=== PATIENT | female | born 1940 | race Caucasian/White ===

== ENCOUNTER 2019-03-16 10:37 | Inpatient (IN) ==
[2019-03-16 13:29] LABS: Basophils % 0.4 % (0.0-0.8); Hemoglobin 7.5 GM/DL (12.0-16.0); Immature Granulocytes % 5.7 %; Immature Granulocytes Absolute 0.29 #; Lymphocytes # 1.9 10*3/uL (1.4-4.0); Lymphocytes % 36.7 % (21.3-54.2); Mean Corpuscular Volume 112.6 FL (87-102); Mean Platelet Volume 10.5 FL (9.6-12.0); Monocytes % 9.8 % (1.7-12.7); NRBC # 0.02 10*3/uL; Neutrophils % 47.4 % (38.7-73.9); Platelet Count 107 T/CUMM (130-400); Red Blood Count 2.22 MC/CUMM (3.8-5.5); Red Cell Distribution Width 16.4 % (9.3-17.3); White Blood Count 5.1 T/CUMM (4-12)
[2019-03-16 13:48] LABS: Alanine Aminotransferase 12 U/L (13-56); Albumin 2.9 G/DL (3.4-5.0); Alkaline Phosphatase 97 U/L (45-117); Amylase 35 U/L (25-115); Apearance,Urine CLEAR (Clear); Aspartate Amino Transferase 30 U/L (0-37); Bilirubin,Urine Negative (Negative); Blood Urea Nitrogen 15 MG/DL (7-18); Blood, Urine Small mg/dL (Negative); Calcium 8.6 MG/DL (8.5-10.1); Glucose 93 MG/DL (74-106); Glucose,Urine (UA) Negative (Negative); Hyaline Casts,Urine 5 /LPF (0-3); Ketones,Urine 5 mg/dL (Negative); Mucus,Urine Occasional /LPF (Occasional); Nitrite,Urine Negative (Negative); Osmolality,Calculated 279.4 MOS/KG (273-304); Protein,Urine 30 MG/DL; RBC,Urine 2 /HPF (0-4); Squamous Epithelial Cell,Urine Occasional /HPF (0-10); Total Protein 6.7 G/DL (6.4-8.3); Urine Color Amber (Yellow); Urine Specific Gravity 1.027 (1.001-1.035); WBC,Urine 1 /HPF (0-6)
[2019-03-16 14:56] LABS: Atypical Lymphocytes Few; Band Neutrophils 1 % (0-10); Lymphocytes 37 % (20-55); Nucleated Red Blood Cells 1 (0-5); Platelet Estimate Adequate; Reactive Lymphocytes Few; Segmented Neutrophils 51 % (50-85); Total Cells Counted 100
[2019-03-16 14:58] LABS: Macrocytosis 1+; Platelet Satellitism Few
[2019-03-16 14:59] LABS: Sedimentation Rate-Westergren 122 MM/HR (0-30)
[2019-03-16] MEDS ORDERED: SODIUM CHLORIDE 0.9% 1,000 ML IV PRN (17:21)
[2019-03-16] MEDS ORDERED: diphenhydrAMINE CAP 25 MG CAPSULE PO ONE ×2 (17:30→23:20)
[2019-03-16] MEDS ORDERED: FUROSEMIDE 40 MG/4 ML VIAL IV SCH (17:30)
[2019-03-16] MEDS ORDERED: ALBUTEROL 2.5 MG/3 ML NEB RESP TX PRN (17:37)
[2019-03-16] MEDS ORDERED: LEVOFLOXACIN INJ 500 MG in PREMIX 1 EACH IV SCH (18:00)
[2019-03-16] MEDS ORDERED: SODIUM CHLORIDE 0.9% 2,300 ML IV ONE (18:15)
[2019-03-16] MEDS ORDERED: LEVOFLOXACIN INJ 100 ML IV ONE (19:02)
[2019-03-16] MEDS: LEVOFLOXACIN INJ 500 MG in PREMIX 1 EACH IV SCH (19:03)
[2019-03-16] MEDS: ALBUTEROL/IPRATROPIUM 3 ML NEB RESP TX SCH (19:18)
[2019-03-16] MEDS: VANCOMYCIN INJ 1,250 MG in SODIUM CHLORIDE 0.9% 250 ML IV SCH ×2 (20:29→23:31)
[2019-03-16] MEDS ORDERED: IPRATROPIUM/ALBUTEROL INHALER INH SCH (21:00)
[2019-03-17] MEDS: FLUTICASONE/SALMETEROL 100-50 DISKUS 14 DOSE INH SCH ×3 (00:09→21:11)
[2019-03-17] MEDS: SIMVASTATIN 20 MG TABLET PO SCH ×2 (00:09→21:11)
[2019-03-17] MEDS: ALBUTEROL/IPRATROPIUM 3 ML NEB RESP TX SCH ×4 (00:47→19:25)
[2019-03-17] MEDS ORDERED: PANTOPRAZOLE 40 MG VIAL IV ONE (01:10)
[2019-03-17] MEDS: LEVOTHYROXINE 50 MCG TABLET PO SCH (05:44)
[2019-03-17 08:53] LABS: Albumin 2.6 G/DL (3.4-5.0); Bilirubin,Total 1.1 MG/DL (0.2-1.0); Calcium 7.8 MG/DL (8.5-10.1); Osmolality,Calculated 281.3 MOS/KG (273-304)
[2019-03-17 08:54] LABS: % Iron Saturation 55.6 % (18-50); Ferritin 236.3 ng/ml (8-252)
[2019-03-17] MEDS: ESCITALOPRAM 10 MG TABLET PO SCH (09:27)
[2019-03-17] MEDS: FUROSEMIDE 40 MG TABLET PO SCH (09:27)
[2019-03-17 09:40] LABS: Folate 2.4 NG/ML (5.4-24.0)
[2019-03-17 09:42] LABS: Hematocrit 28.1 VOL% (35.7-47.0); Mean Corpuscular Volume 106.8 FL (87-102); Platelet Count 90 T/CUMM (130-400); Red Blood Count 2.63 MC/CUMM (3.8-5.5); Red Cell Distribution Width 18.5 % (9.3-17.3); White Blood Count 6.4 T/CUMM (4-12)
[2019-03-17 09:43] LABS: Basophils % 0.2 % (0.0-0.8); Immature Granulocytes % 4.5 %; Immature Granulocytes Absolute 0.29 #; Lymphocytes # 2.9 10*3/uL (1.4-4.0); Lymphocytes % 44.3 % (21.3-54.2); Mean Platelet Volume 10.3 FL (9.6-12.0); Monocytes % 7.5 % (1.7-12.7); Neutrophils % 43.5 % (38.7-73.9)
[2019-03-17 09:44] LABS: Anisocytosis 1+; Macrocytosis 1+
[2019-03-17 09:46] LABS: Platelet Estimate Decreased; Tear Drop Cells Slight
[2019-03-17 09:49] LABS: Band Neutrophils 1 % (0-10); Lymphocytes 52 % (20-55); Myelocytes 2 %; Segmented Neutrophils 41 % (50-85); Total Cells Counted 100
[2019-03-17] MEDS: FAMOTIDINE 20 MG/2 ML VIAL IV SCH ×2 (10:52→21:11)
[2019-03-17] MEDS: VANCOMYCIN INJ 1,250 MG in SODIUM CHLORIDE 0.9% 250 ML IV SCH ×2 (10:53→21:10)
[2019-03-17] MEDS: FOLIC ACID 1 MG TABLET PO SCH (11:55)
[2019-03-17 12:45] LABS: NRBC # 0.02 10*3/uL
[2019-03-17] MEDS ORDERED: FUROSEMIDE 40 MG/4 ML VIAL IV ONE (14:36)
[2019-03-17] MEDS ORDERED: traZODone 50 MG TABLET PO PRN (14:37)
[2019-03-17] MEDS: POLYETHYLENE GLYCOL POWDER 17 GM PACK PO SCH (16:23)
[2019-03-17] MEDS: LEVOFLOXACIN INJ 500 MG in PREMIX 1 EACH IV SCH (18:15)
[2019-03-17] MEDS ORDERED: ACETAMINOPHEN 500 MG TABLET PO ONE (20:45)
[2019-03-17] MEDS: diphenhydrAMINE CAP 50 MG CAPSULE PO PRN (21:10)
[2019-03-18] MEDS: ALBUTEROL/IPRATROPIUM 3 ML NEB RESP TX SCH ×4 (00:34→20:45)
[2019-03-18] MEDS: LEVOTHYROXINE 50 MCG TABLET PO SCH (05:36)
[2019-03-18 06:35] LABS: Albumin 2.5 G/DL (3.4-5.0); Bilirubin,Total 0.7 MG/DL (0.2-1.0); Calcium 8.2 MG/DL (8.5-10.1); Osmolality,Calculated 287.7 MOS/KG (273-304)
[2019-03-18] MEDS: FAMOTIDINE 20 MG/2 ML VIAL IV SCH ×2 (08:45→21:12)
[2019-03-18] MEDS: FOLIC ACID 1 MG TABLET PO SCH (08:45)
[2019-03-18] MEDS: FUROSEMIDE 40 MG TABLET PO SCH (08:45)
[2019-03-18] MEDS: ESCITALOPRAM 10 MG TABLET PO SCH (08:45)
[2019-03-18] MEDS: POLYETHYLENE GLYCOL POWDER 17 GM PACK PO SCH (08:46)
[2019-03-18] MEDS: CYANOCOBALAMIN 1000 MCG/1 ML VIAL IM SCH (08:46)
[2019-03-18] MEDS: FLUTICASONE/SALMETEROL 100-50 DISKUS 14 DOSE INH SCH ×2 (08:47→22:55)
[2019-03-18] MEDS: POTASSIUM CHLORIDE 20 MEQ TABLET PO PRN ×3 (12:28→17:55)
[2019-03-18] MEDS: FUROSEMIDE 40 MG/4 ML VIAL IV SCH (16:12)
[2019-03-18] MEDS: LEVOFLOXACIN INJ 500 MG in PREMIX 1 EACH IV SCH (17:54)
[2019-03-18] MEDS: SIMVASTATIN 20 MG TABLET PO SCH (21:11)
[2019-03-18] MEDS: diphenhydrAMINE CAP 50 MG CAPSULE PO PRN (21:12)
[2019-03-18] MEDS: ACETAMINOPHEN 325 MG TABLET PO SCH (22:54)
[2019-03-19] MEDS: ALBUTEROL/IPRATROPIUM 3 ML NEB RESP TX SCH ×2 (01:39→07:19)
[2019-03-19 05:20] LABS: Albumin 2.5 G/DL (3.4-5.0); Bilirubin,Total 0.8 MG/DL (0.2-1.0); Calcium 8.1 MG/DL (8.5-10.1); Osmolality,Calculated 280.3 MOS/KG (273-304)
[2019-03-19] MEDS: ESCITALOPRAM 10 MG TABLET PO SCH (08:51)
[2019-03-19] MEDS: FOLIC ACID 1 MG TABLET PO SCH (08:51)
[2019-03-19] MEDS: FUROSEMIDE 40 MG/4 ML VIAL IV SCH (08:51)
[2019-03-19] MEDS: LEVOTHYROXINE 50 MCG TABLET PO SCH (08:51)
[2019-03-19] MEDS: CYANOCOBALAMIN 1000 MCG/1 ML VIAL IM SCH (08:52)
[2019-03-19] MEDS: POLYETHYLENE GLYCOL POWDER 17 GM PACK PO SCH (08:52)
[2019-03-19] MEDS: FLUTICASONE/SALMETEROL 100-50 DISKUS 14 DOSE INH SCH (08:52)
[2019-03-19] MEDS: ACETAMINOPHEN 325 MG TABLET PO SCH (08:53)
[2019-03-19] MEDS: FAMOTIDINE 20 MG/2 ML VIAL IV SCH (08:53)
[2019-03-19] MEDS ORDERED: POTASSIUM CHLORIDE 20 MEQ TABLET PO SCH (09:00)
[2019-03-19 12:12] VITALS: BP 117/55
[2019-03-19 15:00] LABS: Ehrlichia Chaffeensis (HME)IgG <1:64 titer (<1:64)
== END 2019-03-19 13:05 | disposition home health service (06) | DRG 812 ==
LOC: N.ED 10:37 → N.EDINP 16:55 → SUATTDRO 16:55 → N.EDINP 22:43
PROVIDERS: ADMIT Family Medicine; ATTEND Family Medicine

== ENCOUNTER 2019-03-23 16:23 | Inpatient (IN) ==
[2019-03-23] MEDS ORDERED: SODIUM CHLORIDE 0.9% 500 ML IV STA (18:49)
[2019-03-23 19:04] LABS: Basophils % 0.4 % (0.0-0.8); Hemoglobin 9.4 GM/DL (12.0-16.0); Immature Granulocytes Absolute 0.23 #; Lymphocytes # 2.5 10*3/uL (1.4-4.0); Lymphocytes % 32.2 % (21.3-54.2); Mean Corpuscular HGB Conc 30.3 GM/DL (32-36); Mean Corpuscular Volume 108.8 FL (87-102); Mean Platelet Volume 10.9 FL (9.6-12.0); Monocytes % 11.7 % (1.7-12.7); NRBC # 0.02 10*3/uL; Neutrophils % 52.7 % (38.7-73.9); Platelet Count 90 T/CUMM (130-400); Red Blood Count 2.85 MC/CUMM (3.8-5.5); Red Cell Distribution Width 16.2 % (9.3-17.3); White Blood Count 7.7 T/CUMM (4-12)
[2019-03-23 19:17] LABS: Alanine Aminotransferase 18 U/L (13-56); Albumin 3.1 G/DL (3.4-5.0); Alkaline Phosphatase 109 U/L (45-117); Amylase 54 U/L (25-115); Aspartate Amino Transferase 34 U/L (0-37); Blood Urea Nitrogen 12 MG/DL (7-18); Calcium 8.7 MG/DL (8.5-10.1); Glucose 116 MG/DL (74-106); Total Protein 7.1 G/DL (6.4-8.3)
[2019-03-23 19:32] LABS: Lymphocytes 33 % (20-55); Segmented Neutrophils 56 % (50-85); Total Cells Counted 100
[2019-03-23 19:33] LABS: Platelet Estimate Decreased; Polychromasia Few
[2019-03-23 19:34] LABS: Macrocytosis 1+; Tear Drop Cells Slight
[2019-03-23 19:35] LABS: Anisocytosis 1+
[2019-03-23 20:10] LABS: Sedimentation Rate-Westergren 101 MM/HR (0-30)
[2019-03-23 20:11] LABS: Apearance,Urine CLEAR (Clear); Bacteria,Urine Occasional /HPF (Few); Bilirubin,Urine Negative (Negative); Blood, Urine Small mg/dL (Negative); Glucose,Urine (UA) Negative (Negative); Ketones,Urine Negative (Negative); Mucus,Urine Occasional /LPF (Occasional); Nitrite,Urine Negative (Negative); Protein,Urine Negative; RBC,Urine <1 /HPF (0-4); Squamous Epithelial Cell,Urine Occasional /HPF (0-10); Transitional Epi Cells,Urine Occasional /HPF (<1); Urine Color Yellow (Yellow); Urine Specific Gravity 1.013 (1.001-1.035); Urine Urobilinogen < 2.0 EU/DL (0.2-1.0)
[2019-03-23] MEDS ORDERED: cefTRIAXone 1,000 MG VIAL ONE (20:13)
[2019-03-23] MEDS ORDERED: DEXAMETHASONE 10 MG/1 ML VIAL ONE (20:13)
[2019-03-23] MEDS ORDERED: DOCUSATE SODIUM 100 MG CAPSULE PO PRN (20:21)
[2019-03-23] MEDS ORDERED: ACETAMINOPHEN 325 MG TABLET PO PRN (20:21)
[2019-03-23] MEDS ORDERED: ONDANSETRON 4 MG/2 ML VIAL IV PRN (20:21)
[2019-03-23] MEDS ORDERED: POTASSIUM CHLORIDE 20 MEQ TABLET PO ONE (20:30)
[2019-03-23] MEDS ORDERED: POLYETHYLENE GLYCOL POWDER 17 GM PACK PO PRN (20:31)
[2019-03-23] MEDS ORDERED: ENOXAPARIN 40 MG/0.4 ML SYRINGE SUBCUT SCH (21:00)
[2019-03-23] MEDS ORDERED: IPRATROPIUM/ALBUTEROL INHALER INH SCH (21:00)
[2019-03-23] MEDS: SIMVASTATIN 20 MG TABLET PO SCH (22:50)
[2019-03-23] MEDS: diphenhydrAMINE CAP 50 MG CAPSULE PO PRN (23:27)
[2019-03-23] MEDS: ACETAMINOPHEN 500 MG TABLET PO PRN (23:27)
[2019-03-24] MEDS: ALBUTEROL/IPRATROPIUM 3 ML NEB RESP TX SCH ×4 (00:10→20:26)
[2019-03-24] MEDS: LEVOTHYROXINE 50 MCG TABLET PO SCH (05:16)
[2019-03-24 06:27] LABS: Basophils % 0.3 % (0.0-0.8); Hematocrit 26.1 VOL% (35.7-47.0); Hemoglobin 8.1 GM/DL (12.0-16.0); Immature Granulocytes % 3.6 %; Immature Granulocytes Absolute 0.21 #; Lymphocytes # 2.1 10*3/uL (1.4-4.0); Lymphocytes % 36.2 % (21.3-54.2); Mean Corpuscular Volume 107.4 FL (87-102); Mean Platelet Volume 10.8 FL (9.6-12.0); Monocytes % 13.4 % (1.7-12.7); NRBC # 0.02 10*3/uL; Neutrophils % 46.5 % (38.7-73.9); Platelet Count 81 T/CUMM (130-400); Red Blood Count 2.43 MC/CUMM (3.8-5.5); Red Cell Distribution Width 16.2 % (9.3-17.3); White Blood Count 5.8 T/CUMM (4-12)
[2019-03-24 06:36] LABS: Calcium 8.2 MG/DL (8.5-10.1); Osmolality,Calculated 277.4 MOS/KG (273-304)
[2019-03-24 07:07] LABS: Hypochromasia 1+; Macrocytosis 1+; Tear Drop Cells Slight
[2019-03-24 07:08] LABS: Anisocytosis 1+; Platelet Estimate Decreased
[2019-03-24] MEDS: ASPIRIN EC 81 MG TABLET PO SCH (08:29)
[2019-03-24] MEDS: FUROSEMIDE 40 MG TABLET PO SCH (08:29)
[2019-03-24] MEDS: FOLIC ACID 1 MG TABLET PO SCH (08:29)
[2019-03-24] MEDS ORDERED: CYANOCOBALAMIN 500 MCG TABLET PO SCH (09:00)
[2019-03-24] MEDS: CYANOCOBALAMIN 1000 MCG/1 ML VIAL IM SCH (12:06)
[2019-03-24] MEDS: SIMVASTATIN 20 MG TABLET PO SCH (20:26)
[2019-03-24] MEDS: ZALEPLON 5 MG CAPSULE PO PRN (20:26)
[2019-03-24] MEDS: ACETAMINOPHEN 500 MG TABLET PO PRN (20:30)
[2019-03-24] MEDS: diphenhydrAMINE CAP 50 MG CAPSULE PO PRN (20:35)
[2019-03-25] MEDS: ALBUTEROL/IPRATROPIUM 3 ML NEB RESP TX SCH ×4 (00:32→19:10)
[2019-03-25] MEDS: LEVOTHYROXINE 50 MCG TABLET PO SCH (06:25)
[2019-03-25 10:01] LABS: Cyclic Citrull Peptide Interp Negative
[2019-03-25] MEDS: ASPIRIN EC 81 MG TABLET PO SCH (10:05)
[2019-03-25] MEDS: FUROSEMIDE 40 MG TABLET PO SCH (10:05)
[2019-03-25] MEDS: FOLIC ACID 1 MG TABLET PO SCH ×2 (10:05→21:09)
[2019-03-25] MEDS: CYANOCOBALAMIN 1000 MCG/1 ML VIAL IM SCH (10:07)
[2019-03-25 10:30] LABS: Rheumatoid Factor < 15 IU/ML (<15)
[2019-03-25] MEDS ORDERED: VANCOMYCIN INJ 1,250 MG in SODIUM CHLORIDE 0.9% 250 ML IV ONE (11:30)
[2019-03-25] MEDS ORDERED: methylPREDNISolone SOD SUC 40 MG/1 ML VIAL IV SCH (12:30)
[2019-03-25] MEDS: FLUTICASONE/SALMETEROL 100-50 DISKUS 14 DOSE INH SCH ×2 (12:45→21:09)
[2019-03-25 15:25] LABS: Ferritin 253.1 ng/ml (8-252); Total Protein 6.9 G/DL (6.4-8.3)
[2019-03-25 15:45] LABS: Immunoglobulin A 152 MG/DL (70-400); Immunoglobulin G 1070 MG/DL (700-1600); Immunoglobulin M 389 MG/DL (40-230)
[2019-03-25] MEDS: ZALEPLON 5 MG CAPSULE PO PRN (21:09)
[2019-03-25] MEDS: ACETAMINOPHEN 500 MG TABLET PO PRN (21:09)
[2019-03-26] MEDS: ALBUTEROL/IPRATROPIUM 3 ML NEB RESP TX SCH ×4 (01:37→20:13)
[2019-03-26 06:02] LABS: Basophils % 0.5 % (0.0-0.8); Hematocrit 24.7 VOL% (35.7-47.0); Hemoglobin 7.7 GM/DL (12.0-16.0); Immature Granulocytes % 3.6 %; Immature Granulocytes Absolute 0.15 #; Lymphocytes # 1.5 10*3/uL (1.4-4.0); Mean Corpuscular HGB Conc 31.2 GM/DL (32-36); Mean Corpuscular Volume 110.3 FL (87-102); Neutrophils % 44.9 % (38.7-73.9); Platelet Count 84 T/CUMM (130-400); Red Blood Count 2.24 MC/CUMM (3.8-5.5); Red Cell Distribution Width 16.7 % (9.3-17.3); White Blood Count 4.1 T/CUMM (4-12)
[2019-03-26 06:27] LABS: Hypochromasia 1+; Platelet Estimate Decreased
[2019-03-26 06:28] LABS: Calcium 8.4 MG/DL (8.5-10.1); Macrocytosis Slight; Osmolality,Calculated 278.4 MOS/KG (273-304)
[2019-03-26] MEDS: LEVOTHYROXINE 50 MCG TABLET PO SCH (06:40)
[2019-03-26 08:18] LABS: Total Protein (Chem) 6.9 G/DL (6.4-8.3)
[2019-03-26] MEDS ORDERED: SODIUM CHLORIDE 0.9% 1,000 ML IV PRN (08:33)
[2019-03-26] MEDS: ASPIRIN EC 81 MG TABLET PO SCH (08:53)
[2019-03-26] MEDS: methylPREDNISolone SOD SUC 40 MG/1 ML VIAL IV SCH (08:53)
[2019-03-26] MEDS: FOLIC ACID 1 MG TABLET PO SCH ×2 (08:53→21:34)
[2019-03-26] MEDS: CYANOCOBALAMIN 1000 MCG/1 ML VIAL IM SCH (08:53)
[2019-03-26] MEDS: FUROSEMIDE 40 MG TABLET PO SCH (08:53)
[2019-03-26] MEDS: FLUTICASONE/SALMETEROL 100-50 DISKUS 14 DOSE INH SCH ×2 (08:53→21:25)
[2019-03-26 09:31] LABS: Albumin (SPE) 4.1 G/DL (3.2-5.3); Albumin (SPE) Rel % 58.7 %; Alpha 1 (SPE) 0.4 G/DL (0.1-0.4); Alpha 1 (SPE) Rel % 5.5 %; Alpha 2 (SPE) 0.7 G/DL (0.4-1.0); Alpha 2 (SPE) Rel % 10.1 %; Beta (SPE) 0.6 G/DL (0.5-1.1); Beta (SPE) Rel % 8.5 %; Gamma (SPE) Rel % 17.2 %
[2019-03-26 10:17] LABS: Gamma (SPE) 1.2 G/DL (0.7-1.7)
[2019-03-26 10:19] LABS: Double Stranded DNA Antibodies < 25.0 IU/ML
[2019-03-26 10:21] LABS: Immunoglobulin A (Chem) 152 MG/DL (70-400); Immunoglobulin G (Chem) 1070 MG/DL (700-1600); Immunoglobulin M (Chem) 389 MG/DL (40-230)
[2019-03-26 10:23] LABS: Anti SS-A Antibodies < 16 EU/ML
[2019-03-26] MEDS: ACETAMINOPHEN 500 MG TABLET PO PRN (21:34)
[2019-03-26] MEDS: ZALEPLON 5 MG CAPSULE PO PRN (21:34)
[2019-03-27] MEDS: ALBUTEROL/IPRATROPIUM 3 ML NEB RESP TX SCH ×4 (00:42→19:59)
[2019-03-27 00:57] LABS: Hematocrit 29.4 VOL% (35.7-47.0); Hemoglobin 9.7 GM/DL (12.0-16.0)
[2019-03-27 05:31] LABS: Basophils % 0.3 % (0.0-0.8); Hematocrit 29.8 VOL% (35.7-47.0); Hemoglobin 9.7 GM/DL (12.0-16.0); Immature Granulocytes % 2.9 %; Lymphocytes # 1.5 10*3/uL (1.4-4.0); Lymphocytes % 21.8 % (21.3-54.2); Mean Corpuscular HGB Conc 32.6 GM/DL (32-36); Mean Corpuscular Volume 100.7 FL (87-102); Mean Platelet Volume 10.9 FL (9.6-12.0); Monocytes % 11.6 % (1.7-12.7); NRBC # 0.02 10*3/uL; Neutrophils % 63.4 % (38.7-73.9); Platelet Count 97 T/CUMM (130-400); Red Blood Count 2.96 MC/CUMM (3.8-5.5); Red Cell Distribution Width 19.4 % (9.3-17.3); White Blood Count 6.9 T/CUMM (4-12)
[2019-03-27 05:58] LABS: Atypical Lymphocytes Few; Band Neutrophils 1 % (0-10); Eosinophils 1 % (0-10); Hypochromasia 1+; Lymphocytes 24 % (20-55); Segmented Neutrophils 66 % (50-85); Total Cells Counted 100
[2019-03-27 05:59] LABS: Anisocytosis 1+; Macrocytosis 1+; Platelet Estimate Decreased; Tear Drop Cells Slight
[2019-03-27] MEDS: LEVOTHYROXINE 50 MCG TABLET PO SCH (07:49)
[2019-03-27] MEDS: ERGOCALCIFEROL 50,000 UNIT CAPSULE PO SCH (09:37)
[2019-03-27] MEDS: FOLIC ACID 1 MG TABLET PO SCH ×2 (09:37→21:58)
[2019-03-27] MEDS: FUROSEMIDE 40 MG TABLET PO SCH (09:37)
[2019-03-27] MEDS: ASPIRIN EC 81 MG TABLET PO SCH (09:38)
[2019-03-27] MEDS: COENZYME Q10 100 MG CAPSULE PO SCH (09:38)
[2019-03-27] MEDS: methylPREDNISolone SOD SUC 40 MG/1 ML VIAL IV SCH (09:51)
[2019-03-27] MEDS: CYANOCOBALAMIN 1000 MCG/1 ML VIAL IM SCH (10:52)
[2019-03-27] MEDS: FLUTICASONE/SALMETEROL 100-50 DISKUS 14 DOSE INH SCH ×2 (10:53→21:59)
[2019-03-27 14:41] LABS: Myeloperoxidase Antibody < 0.2 U
[2019-03-27] MEDS: ACETAMINOPHEN 500 MG TABLET PO PRN (21:58)
[2019-03-28] MEDS: ALBUTEROL/IPRATROPIUM 3 ML NEB RESP TX SCH ×4 (01:09→19:50)
[2019-03-28] MEDS: LEVOTHYROXINE 50 MCG TABLET PO SCH (05:34)
[2019-03-28] MEDS: methylPREDNISolone SOD SUC 40 MG/1 ML VIAL IV SCH (09:13)
[2019-03-28] MEDS: CYANOCOBALAMIN 1000 MCG/1 ML VIAL IM SCH (09:13)
[2019-03-28] MEDS: ASPIRIN EC 81 MG TABLET PO SCH (09:14)
[2019-03-28] MEDS: COENZYME Q10 100 MG CAPSULE PO SCH (09:14)
[2019-03-28] MEDS: FUROSEMIDE 40 MG TABLET PO SCH (09:14)
[2019-03-28] MEDS: FOLIC ACID 1 MG TABLET PO SCH ×2 (09:14→20:30)
[2019-03-28] MEDS: FLUTICASONE/SALMETEROL 100-50 DISKUS 14 DOSE INH SCH ×2 (09:14→20:30)
[2019-03-28] MEDS ORDERED: MAGNESIUM HYDROXIDE SUSP 30 ML UDCUP PO ONE (18:06)
[2019-03-28] MEDS: ZALEPLON 5 MG CAPSULE PO PRN (20:30)
[2019-03-29] MEDS: ALBUTEROL/IPRATROPIUM 3 ML NEB RESP TX SCH ×4 (00:50→20:10)
[2019-03-29] MEDS: LEVOTHYROXINE 50 MCG TABLET PO SCH (05:55)
[2019-03-29] MEDS: CYANOCOBALAMIN 1000 MCG/1 ML VIAL IM SCH (09:10)
[2019-03-29] MEDS: ASPIRIN EC 81 MG TABLET PO SCH (09:10)
[2019-03-29] MEDS: methylPREDNISolone SOD SUC 40 MG/1 ML VIAL IV SCH (09:10)
[2019-03-29] MEDS: FOLIC ACID 1 MG TABLET PO SCH ×2 (09:10→20:29)
[2019-03-29] MEDS: COENZYME Q10 100 MG CAPSULE PO SCH (09:10)
[2019-03-29] MEDS: FUROSEMIDE 40 MG TABLET PO SCH (09:10)
[2019-03-29] MEDS: FLUTICASONE/SALMETEROL 100-50 DISKUS 14 DOSE INH SCH ×2 (10:31→20:29)
[2019-03-29] MEDS ORDERED: BISACODYL 5 MG TABLET PO ONE (10:33)
[2019-03-29] MEDS: ZALEPLON 5 MG CAPSULE PO PRN (20:28)
[2019-03-30] MEDS: ALBUTEROL/IPRATROPIUM 3 ML NEB RESP TX SCH ×2 (02:55→07:47)
[2019-03-30 05:23] LABS: Basophils % 0.5 % (0.0-0.8); Hematocrit 29.2 VOL% (35.7-47.0); Hemoglobin 9.2 GM/DL (12.0-16.0); Immature Granulocytes % 5.3 %; Immature Granulocytes Absolute 0.32 #; Lymphocytes # 1.6 10*3/uL (1.4-4.0); Lymphocytes % 26.6 % (21.3-54.2); Mean Corpuscular HGB Conc 31.5 GM/DL (32-36); Mean Corpuscular Volume 104.7 FL (87-102); Mean Platelet Volume 11.2 FL (9.6-12.0); Monocytes % 14.2 % (1.7-12.7); Neutrophils % 53.4 % (38.7-73.9); Platelet Count 106 T/CUMM (130-400); Red Blood Count 2.79 MC/CUMM (3.8-5.5); Red Cell Distribution Width 18.5 % (9.3-17.3); White Blood Count 6.1 T/CUMM (4-12)
[2019-03-30] MEDS: LEVOTHYROXINE 50 MCG TABLET PO SCH (06:24)
[2019-03-30 06:44] LABS: Band Neutrophils 4 % (0-10); Lymphocytes 24 % (20-55); Metamyelocytes 3 %; Myelocytes 1 %; Segmented Neutrophils 62 % (50-85); Total Cells Counted 100
[2019-03-30 06:45] LABS: Anisocytosis 1+; Hypochromasia Slight; Macrocytosis Slight
[2019-03-30 06:46] LABS: Platelet Estimate Adequate; Tear Drop Cells 1+
[2019-03-30 07:09] LABS: Hepatitis B Core IgM Quant 0.17 Index; Hepatitis B Surface Ag Quant < 0.10 Index; Hepatitis B Surface Ag Result Negative (Negative); Hepatitis C Virus Ab Result Negative (Negative)
[2019-03-30] MEDS: CYANOCOBALAMIN 1000 MCG/1 ML VIAL IM SCH (09:11)
[2019-03-30] MEDS: ERGOCALCIFEROL 50,000 UNIT CAPSULE PO SCH (09:11)
[2019-03-30] MEDS: FOLIC ACID 1 MG TABLET PO SCH (09:11)
[2019-03-30] MEDS: ASPIRIN EC 81 MG TABLET PO SCH (09:11)
[2019-03-30] MEDS: methylPREDNISolone SOD SUC 40 MG/1 ML VIAL IV SCH (09:11)
[2019-03-30] MEDS: COENZYME Q10 100 MG CAPSULE PO SCH (09:12)
[2019-03-30] MEDS: FUROSEMIDE 40 MG TABLET PO SCH (09:12)
[2019-03-30] MEDS: FLUTICASONE/SALMETEROL 100-50 DISKUS 14 DOSE INH SCH (09:15)
[2019-03-30 13:58] VITALS: BP 121/75
[2019-04-02 17:41] LABS: IgG Immunoblot Negative (Negative); IgM Immunoblot Negative (Negative)
[2019-04-02 23:01] LABS: Ehrlichia Chaffeensis (HME)IgG <1:64 titer (<1:64)
== END 2019-03-30 13:45 | disposition home health service (06) | DRG 546 ==
LOC: N.ED 16:23 → N.EDINP 20:21 → N.5E 21:06
PROVIDERS: ADMIT Internal Medicine; ATTEND Internal Medicine

== ENCOUNTER 2019-05-01 15:27 | Inpatient (IN) ==
[2019-05-01 16:29] LABS: Hematocrit 22.8 VOL% (35.7-47.0); Hemoglobin 7.1 GM/DL (12.0-16.0); Immature Granulocytes % 5.6 %; Immature Granulocytes Absolute 0.24 #; Lymphocytes # 1.7 10*3/uL (1.4-4.0); Mean Corpuscular HGB Conc 31.1 GM/DL (32-36); Mean Corpuscular Volume 103.2 FL (87-102); Mean Platelet Volume 11.4 FL (9.6-12.0); Monocytes % 12.1 % (1.7-12.7); NRBC # 0.03 10*3/uL; Neutrophils % 43.3 % (38.7-73.9); Platelet Count 54 T/CUMM (130-400); Red Blood Count 2.21 MC/CUMM (3.8-5.5); Red Cell Distribution Width 19.5 % (9.3-17.3); White Blood Count 4.3 T/CUMM (4-12)
[2019-05-01 16:37] LABS: INR 1.1; PT Patient Result 11.4 SECS (9.6-12.2)
[2019-05-01 16:46] LABS: Albumin 2.8 G/DL (3.4-5.0); Bilirubin,Total 1.3 MG/DL (0.2-1.0); Calcium 8.6 MG/DL (8.5-10.1); Osmolality,Calculated 280.7 MOS/KG (273-304)
[2019-05-01 17:31] LABS: Apearance,Urine CLEAR (Clear); Bacteria,Urine Occasional /HPF (Few); Bilirubin,Urine Negative (Negative); Blood, Urine Small mg/dL (Negative); Glucose,Urine (UA) Negative (Negative); Hyaline Casts,Urine 1 /LPF (0-3); Ketones,Urine Negative (Negative); Mucus,Urine Occasional /LPF (Occasional); Nitrite,Urine Negative (Negative); Protein,Urine Negative; RBC,Urine 2 /HPF (0-4); Squamous Epithelial Cell,Urine Occasional /HPF (0-10); Urine Color Yellow (Yellow); Urine Specific Gravity 1.019 (1.001-1.035); Urine Urobilinogen < 2.0 EU/DL (0.2-1.0); WBC,Urine 1 /HPF (0-6)
[2019-05-01 17:42] LABS: Barbiturates Screen,Urine Negative (Negative); Benzodiazepines Screen,Urine Negative (Negative); Cannabinoid Screen,Urine Negative (Negative); Opiate Screen,Urine Negative (Negative); Phencyclidine Screen,Urine Negative (Negative)
[2019-05-01 17:43] LABS: Anisocytosis 2+; Band Neutrophils 5 % (0-10); Lymphocytes 36 % (20-55); Macrocytosis 2+; Metamyelocytes 3 %; Myelocytes 2 %; Nucleated Red Blood Cells 1 (0-5); Platelet Estimate Decreased; Polychromasia 1+; Reactive Lymphocytes 1+; Segmented Neutrophils 44 % (50-85); Total Cells Counted 100
[2019-05-01 17:44] LABS: Hypochromasia 1+
[2019-05-01] MEDS ORDERED: SODIUM CHLORIDE 0.9% 1,000 ML IV PRN (19:06)
[2019-05-01] MEDS ORDERED: IPRATROPIUM/ALBUTEROL INHALER INH SCH (21:00)
[2019-05-01] MEDS: FLUTICASONE/SALMETEROL 100-50 DISKUS 14 DOSE INH SCH (21:24)
[2019-05-02] MEDS: ACETAMINOPHEN 325 MG TABLET PO PRN ×2 (01:48→07:03)
[2019-05-02] MEDS: LEVOTHYROXINE 50 MCG TABLET PO SCH (05:38)
[2019-05-02 06:12] LABS: Basophils % 0.4 % (0.0-0.8); Hematocrit 26.5 VOL% (35.7-47.0); Hemoglobin 8.4 GM/DL (12.0-16.0); Immature Granulocytes % 7.5 %; Immature Granulocytes Absolute 0.35 #; Lymphocytes % 43.6 % (21.3-54.2); Mean Corpuscular HGB Conc 31.7 GM/DL (32-36); Mean Corpuscular Volume 100.8 FL (87-102); Mean Platelet Volume 11.4 FL (9.6-12.0); Monocytes % 10.5 % (1.7-12.7); NRBC # 0.02 10*3/uL; Red Blood Count 2.63 MC/CUMM (3.8-5.5); Red Cell Distribution Width 20.9 % (9.3-17.3); White Blood Count 4.7 T/CUMM (4-12)
[2019-05-02 06:14] LABS: Platelet Count 51 T/CUMM (130-400)
[2019-05-02 06:20] LABS: Calcium 8.5 MG/DL (8.5-10.1)
[2019-05-02 06:32] LABS: Parathyroid Hormone Intact 60.2 PG/ML (18.4-80.1)
[2019-05-02 06:33] LABS: Folate 8.3 NG/ML (5.4-24.0); Vitamin B12 582 PG/ML (211-911)
[2019-05-02 06:35] LABS: Band Neutrophils 3 % (0-10); Hypochromasia 1+; Lymphocytes 41 % (20-55); Myelocytes 2 %; Platelet Estimate Decreased; Segmented Neutrophils 49 % (50-85); Total Cells Counted 100
[2019-05-02 06:36] LABS: Macrocytosis Slight
[2019-05-02 06:44] LABS: % Iron Saturation 77.6 % (18-50); Thyroid Stimulating Hormone 0.859 uIU/ml (0.358-3.74)
[2019-05-02 07:06] LABS: Sedimentation Rate-Westergren 108 MM/HR (0-30)
[2019-05-02 07:10] LABS: HIV Antigen/Antibody Result Nonreactive (Nonreactive)
[2019-05-02] MEDS ORDERED: PANTOPRAZOLE 40 MG TABLET PO SCH (09:00)
[2019-05-02] MEDS: ASPIRIN EC 81 MG TABLET PO SCH (09:08)
[2019-05-02] MEDS: CYANOCOBALAMIN 100 MCG TABLET PO SCH (09:08)
[2019-05-02] MEDS: FUROSEMIDE 40 MG TABLET PO SCH (09:08)
[2019-05-02] MEDS: FOLIC ACID 1 MG TABLET PO SCH (09:08)
[2019-05-02] MEDS: predniSONE 20 MG TABLET PO SCH (09:09)
[2019-05-02] MEDS: FLUTICASONE/SALMETEROL 100-50 DISKUS 14 DOSE INH SCH ×2 (09:09→20:13)
[2019-05-02] MEDS: POTASSIUM CHLORIDE 10 MEQ TABLET PO SCH (09:09)
[2019-05-02] MEDS: ALBUTEROL/IPRATROPIUM 3 ML NEB RESP TX SCH ×4 (09:15→20:12)
[2019-05-02] MEDS ORDERED: KETOROLAC 15 MG/1 ML VIAL IV PRN (09:34)
[2019-05-02] MEDS: ZALEPLON 5 MG CAPSULE PO PRN (21:17)
[2019-05-03] MEDS: ALBUTEROL/IPRATROPIUM 3 ML NEB RESP TX SCH ×4 (01:59→20:01)
[2019-05-03] MEDS: LEVOTHYROXINE 50 MCG TABLET PO SCH (05:57)
[2019-05-03] MEDS: ASPIRIN EC 81 MG TABLET PO SCH (09:07)
[2019-05-03] MEDS: FUROSEMIDE 40 MG TABLET PO SCH (09:07)
[2019-05-03] MEDS: CYANOCOBALAMIN 100 MCG TABLET PO SCH (09:07)
[2019-05-03] MEDS: POTASSIUM CHLORIDE 10 MEQ TABLET PO SCH (09:08)
[2019-05-03] MEDS: FLUTICASONE/SALMETEROL 100-50 DISKUS 14 DOSE INH SCH ×2 (09:08→20:25)
[2019-05-03] MEDS: FOLIC ACID 1 MG TABLET PO SCH (09:08)
[2019-05-03] MEDS: predniSONE 20 MG TABLET PO SCH (09:08)
[2019-05-03] MEDS ORDERED: CYCLOPHOSPHAMIDE INJ 500 MG in SODIUM CHLORIDE 0.9% 250 ML IV ONE (13:00)
[2019-05-03] MEDS: GRANISETRON 1 MG/1 ML VIAL IV SCH (15:32)
[2019-05-03] MEDS: ALLOPURINOL 100 MG TABLET PO SCH (15:33)
[2019-05-03] MEDS: ZALEPLON 5 MG CAPSULE PO PRN (20:24)
[2019-05-03] MEDS ORDERED: ALUMINUM/MAGNES/SIMETH MAX STR 30 ML UDCUP PO PRN (20:36)
[2019-05-04] MEDS: ALBUTEROL/IPRATROPIUM 3 ML NEB RESP TX SCH ×4 (01:35→20:33)
[2019-05-04 05:24] LABS: Hematocrit 22.4 VOL% (35.7-47.0); Immature Granulocytes % 8.2 %; Immature Granulocytes Absolute 0.38 #; Lymphocytes # 1.3 10*3/uL (1.4-4.0); Lymphocytes % 28.3 % (21.3-54.2); Mean Corpuscular HGB Conc 31.3 GM/DL (32-36); Mean Platelet Volume 11.9 FL (9.6-12.0); Monocytes % 11.2 % (1.7-12.7); Neutrophils % 52.3 % (38.7-73.9); Platelet Count 48 T/CUMM (130-400); Red Blood Count 2.24 MC/CUMM (3.8-5.5); Red Cell Distribution Width 19.4 % (9.3-17.3); White Blood Count 4.6 T/CUMM (4-12)
[2019-05-04 05:53] LABS: Albumin 2.5 G/DL (3.4-5.0); Bilirubin,Total 0.9 MG/DL (0.2-1.0); Calcium 8.2 MG/DL (8.5-10.1); Osmolality,Calculated 276.7 MOS/KG (273-304); Total Protein 6.2 G/DL (6.4-8.3)
[2019-05-04 06:04] LABS: Band Neutrophils 3 % (0-10); Lymphocytes 31 % (20-55); Segmented Neutrophils 56 % (50-85); Total Cells Counted 100
[2019-05-04 06:05] LABS: Anisocytosis 1+; Hypochromasia 1+; Platelet Estimate Decreased; Tear Drop Cells 1+
[2019-05-04] MEDS: LEVOTHYROXINE 50 MCG TABLET PO SCH (06:24)
[2019-05-04] MEDS: ONDANSETRON 4 MG/2 ML VIAL IV PRN ×2 (06:27→20:18)
[2019-05-04] MEDS ORDERED: SODIUM CHLORIDE 0.9% IV ONE ×3 (08:01→09:30)
[2019-05-04] MEDS ORDERED: RITUXIMAB IV ONE ×2 (08:01→09:30)
[2019-05-04] MEDS ORDERED: DEXAMETHASONE IV ONE (08:01)
[2019-05-04] MEDS ORDERED: ACETAMINOPHEN 500 MG TABLET PO ONE (08:01)
[2019-05-04] MEDS ORDERED: diphenhydrAMINE 50 MG/1 ML VIAL IV ONE (08:04)
[2019-05-04] MEDS ORDERED: GRANISETRON 1 MG/1 ML VIAL IV SCH (08:30)
[2019-05-04] MEDS ORDERED: ERGOCALCIFEROL 50,000 UNIT CAPSULE PO SCH (09:00)
[2019-05-04] MEDS: GRANISETRON 1 MG/1 ML VIAL IV SCH (10:00)
[2019-05-04] MEDS: ALLOPURINOL 100 MG TABLET PO SCH (10:01)
[2019-05-04] MEDS: predniSONE 20 MG TABLET PO SCH (10:01)
[2019-05-04] MEDS: FLUTICASONE/SALMETEROL 100-50 DISKUS 14 DOSE INH SCH (10:02)
[2019-05-04] MEDS: FOLIC ACID 1 MG TABLET PO SCH (10:02)
[2019-05-04] MEDS: CYANOCOBALAMIN 100 MCG TABLET PO SCH (10:02)
[2019-05-04] MEDS: POTASSIUM CHLORIDE 10 MEQ TABLET PO SCH (10:02)
[2019-05-04] MEDS ORDERED: BISACODYL 5 MG TABLET PO ONE ×2 (10:03→12:00)
[2019-05-04 10:10] LABS: Hemoglobin A1 (Alkaline) 97.4 % (96.5-98.5); Hemoglobin A2 (Alkaline) 2.6 % (1.5-3.5)
[2019-05-04] MEDS ORDERED: PANTOPRAZOLE INJ 80 MG in SODIUM CHLORIDE 0.9% 100 ML IV ONE (12:55)
[2019-05-04] MEDS ORDERED: SODIUM CHLORIDE 0.9% 1,000 ML IV PRN (12:58)
[2019-05-04] MEDS ORDERED: PANTOPRAZOLE INJ 200 MG in SODIUM CHLORIDE 0.9% 250 ML IV SCH (13:00)
[2019-05-04 13:21] LABS: Hematocrit 26.4 VOL% (35.7-47.0); Hemoglobin 8.1 GM/DL (12.0-16.0)
[2019-05-04] MEDS: SODIUM CHLORIDE 0.9% 1,000 ML IV SCH ×2 (15:54→21:37)
[2019-05-04] MEDS: POLYETHYLENE GLYCOL POWDER 17 GM PACK PO SCH ×2 (15:54→20:52)
[2019-05-04] MEDS: DOCUSATE SODIUM 100 MG CAPSULE PO SCH ×2 (15:54→20:53)
[2019-05-04] MEDS ORDERED: POLYETHYLENE GLYCOL POWDER 255 GM BOTTLE PO ONE ×2 (18:00→18:12)
[2019-05-04] MEDS: HYDROCORTISONE 25 MG SUPP RECTAL SCH (20:56)
[2019-05-05 00:55] LABS: Basophils % 0.1 % (0.0-0.8); Hematocrit 31.2 VOL% (35.7-47.0); Hemoglobin 9.9 GM/DL (12.0-16.0); Immature Granulocytes % 8.1 %; Immature Granulocytes Absolute 0.56 #; Lymphocytes # 1.6 10*3/uL (1.4-4.0); Lymphocytes % 22.8 % (21.3-54.2); Mean Corpuscular HGB Conc 31.7 GM/DL (32-36); Mean Platelet Volume 11.9 FL (9.6-12.0); Monocytes % 9.1 % (1.7-12.7); Neutrophils % 59.9 % (38.7-73.9); Platelet Count 44 T/CUMM (130-400); Red Blood Count 3.15 MC/CUMM (3.8-5.5); White Blood Count 6.9 T/CUMM (4-12)
[2019-05-05 01:08] LABS: Calcium 8.7 MG/DL (8.5-10.1); Osmolality,Calculated 277.7 MOS/KG (273-304)
[2019-05-05 01:34] LABS: Band Neutrophils 5 % (0-10); Lymphocytes 20 % (20-55); Metamyelocytes 1 %; Myelocytes 1 %; Segmented Neutrophils 63 % (50-85); Total Cells Counted 100
[2019-05-05 01:35] LABS: Hypochromasia Slight; Platelet Estimate Decreased; Tear Drop Cells Few
[2019-05-05 01:37] LABS: Reactive Lymphocytes Few
[2019-05-05] MEDS: FLUTICASONE/SALMETEROL 100-50 DISKUS 14 DOSE INH SCH ×3 (04:21→21:32)
[2019-05-05] MEDS: LEVOTHYROXINE 50 MCG TABLET PO SCH (06:30)
[2019-05-05] MEDS: ALBUTEROL/IPRATROPIUM 3 ML NEB RESP TX SCH ×4 (07:03→19:02)
[2019-05-05] MEDS: POLYETHYLENE GLYCOL POWDER 17 GM PACK PO SCH ×2 (08:00→21:30)
[2019-05-05] MEDS: HYDROCORTISONE 25 MG SUPP RECTAL SCH ×2 (08:00→21:30)
[2019-05-05] MEDS: DOCUSATE SODIUM 100 MG CAPSULE PO SCH ×2 (08:00→21:29)
[2019-05-05] MEDS: SODIUM CHLORIDE 0.9% 1,000 ML IV SCH (08:41)
[2019-05-05] MEDS ORDERED: LIDOCAINE 2% 5 ML VIAL ONE (09:00)
[2019-05-05] MEDS ORDERED: PROPOFOL 200 MG/20 ML VIAL IV ONE (09:00)
[2019-05-05] MEDS ORDERED: PHENYLEPHRINE 1 MG/10 ML SYRINGE IV ONE (09:00)
[2019-05-05 09:01] LABS: Hematocrit 26.1 VOL% (35.7-47.0); Hemoglobin 8.3 GM/DL (12.0-16.0)
[2019-05-05] MEDS: GRANISETRON 1 MG/1 ML VIAL IV SCH (12:40)
[2019-05-05] MEDS ORDERED: diphenhydrAMINE 50 MG/1 ML VIAL IV ONE (13:56)
[2019-05-05] MEDS ORDERED: DEXAMETHASONE IV ONE (13:56)
[2019-05-05] MEDS ORDERED: SODIUM CHLORIDE 0.9% IV ONE ×2 (13:56→15:00)
[2019-05-05] MEDS ORDERED: GRANISETRON 1 MG/1 ML VIAL IV ONE (14:00)
[2019-05-05] MEDS ORDERED: RITUXIMAB IV ONE (15:00)
[2019-05-05] MEDS: CYANOCOBALAMIN 100 MCG TABLET PO SCH (15:53)
[2019-05-05] MEDS: POTASSIUM CHLORIDE 10 MEQ TABLET PO SCH (15:53)
[2019-05-05] MEDS: FOLIC ACID 1 MG TABLET PO SCH (15:53)
[2019-05-05] MEDS: ALLOPURINOL 100 MG TABLET PO SCH (15:53)
[2019-05-05] MEDS: LACTULOSE 20 GM/30 ML UDCUP PO SCH ×2 (15:54→21:30)
[2019-05-05] MEDS ORDERED: IBUPROFEN 600 MG TABLET PO ONE (17:16)
[2019-05-05] MEDS ORDERED: ACETAMINOPHEN 500 MG TABLET PO ONE (17:16)
[2019-05-05] MEDS: ZALEPLON 5 MG CAPSULE PO PRN (21:29)
[2019-05-06] MEDS: ALBUTEROL/IPRATROPIUM 3 ML NEB RESP TX SCH ×4 (00:17→12:02)
[2019-05-06 05:30] LABS: Albumin 2.5 G/DL (3.4-5.0); Bilirubin,Total 1.3 MG/DL (0.2-1.0); Calcium 8.2 MG/DL (8.5-10.1); Osmolality,Calculated 288.1 MOS/KG (273-304); Total Protein 5.9 G/DL (6.4-8.3); Uric Acid 5.5 MG/DL (2.6-6.0)
[2019-05-06] MEDS: LEVOTHYROXINE 50 MCG TABLET PO SCH (05:58)
[2019-05-06 06:57] LABS: Hematocrit 24.5 VOL% (35.7-47.0); Hemoglobin 7.6 GM/DL (12.0-16.0); Immature Granulocytes Absolute 0.33 #; Lymphocytes # 0.9 10*3/uL (1.4-4.0); Lymphocytes % 18.7 % (21.3-54.2); Mean Corpuscular Volume 101.7 FL (87-102); Mean Platelet Volume 12.5 FL (9.6-12.0); Monocytes % 5.1 % (1.7-12.7); Neutrophils % 69.2 % (38.7-73.9); Red Cell Distribution Width 18.6 % (9.3-17.3)
[2019-05-06 07:00] LABS: Platelet Count 36 T/CUMM (130-400); Red Blood Count 2.41 MC/CUMM (3.8-5.5); White Blood Count 4.7 T/CUMM (4-12)
[2019-05-06 07:18] LABS: Hypochromasia 1+; Lymphocytes 15 % (20-55); Platelet Estimate Decreased; Segmented Neutrophils 82 % (50-85); Total Cells Counted 100
[2019-05-06] MEDS ORDERED: LINACLOTIDE 145 MCG CAPSULE PO SCH (07:30)
[2019-05-06] MEDS ORDERED: SODIUM CHLORIDE 0.9% 1,000 ML IV PRN (07:50)
[2019-05-06] MEDS: ALLOPURINOL 100 MG TABLET PO SCH (08:45)
[2019-05-06] MEDS: CYANOCOBALAMIN 100 MCG TABLET PO SCH (08:45)
[2019-05-06] MEDS: FOLIC ACID 1 MG TABLET PO SCH (08:45)
[2019-05-06] MEDS: POTASSIUM CHLORIDE 10 MEQ TABLET PO SCH (08:45)
[2019-05-06] MEDS: LACTULOSE 20 GM/30 ML UDCUP PO SCH (09:30)
[2019-05-06] MEDS: FLUTICASONE/SALMETEROL 100-50 DISKUS 14 DOSE INH SCH (09:30)
[2019-05-06] MEDS: HYDROCORTISONE 25 MG SUPP RECTAL SCH (09:30)
[2019-05-06] MEDS: POLYETHYLENE GLYCOL POWDER 17 GM PACK PO SCH (09:31)
[2019-05-06] MEDS: DOCUSATE SODIUM 100 MG CAPSULE PO SCH (09:31)
[2019-05-06 18:04] VITALS: BP 131/62
== END 2019-05-06 18:37 | disposition home health service (06) | DRG 841 ==
LOC: N.EDINP 15:27 → N.ED 15:27 → N.4E 19:35 → N.CC 05-04 13:25 → N.4E 05-05 13:48
PROVIDERS: ADMIT Hospitalist; ATTEND Hospitalist